=== PATIENT | female | born 1990 | race Caucasian/White ===

== ENCOUNTER 2021-10-25 22:20 | Emergency (ER) | payer BC ==
[2021-10-25] MEDS ORDERED: Iopamidol 370 76% 100 ML VIAL FS ONE (22:21)
[2021-10-25 23:32] LABS: Hemoglobin 13.2 g/dL (12.0-16.0); Mean Corpuscular HGB CONC 33.7 g/dL (32.0-36.0); Mean Corpuscular Hemoglobin 28.8 pg (27.0-31.0); Mean Corpuscular Volume 85.5 fL (78.0-98.0); Mean Platelet Volume 7.6 fL (7.4-10.4); Platelet Count 277 thou/uL (130-400); RBC Distribution Width 11.5 % (11.5-14.5); Red Blood Cell (RBC) Count 4.57 mill/uL (4.20-5.40)
[2021-10-25 23:49] LABS: Eosinophils 1 % (0-10); Lymphocytes 16 % (21-51); MDiff Complete? YES; Monocytes 8 % (0-10); Neutrophil 75 % (42-75); RBC Morphology Normal
[2021-10-25 23:54] LABS: Bilirubin Negative (Negative); Blood, Urine Trace (Negative); Clarity Clear (Clear); Glucose, Urine (Dipstick) Negative (Negative); Ketone, Urine Negative (Negative); Leukocyte Trace (Negative); Nitrite Negative (Negative); Protein, Urine (Dipstick) Negative (Neg-Trace); Specific Gravity, Urine 1.015 (1.005-1.030); pH, Urine 7.5 (5.0-9.0)
[2021-10-26 00:01] LABS: ALT (SGPT) 42 U/L (8-55); Albumin 3.9 g/dL (3.5-5.0); Alkaline Phosphatase 54 U/L (40-110); Anion Gap 13 mmol/L (10-20); BUN (Urea Nitrogen) 9 mg/dL (7.0-18.7); Bilirubin, Total 0.4 mg/dL (0.2-1.2); Calc. Creatinine Clearance 0 mL/min (70-130); Calcium 8.7 mg/dL (7.8-10.44); Carbon Dioxide 25 mmol/L (22-29); Chloride 104 mmol/L (98-107); Glucose 104 mg/dL (70-105); Lipase 16 U/L (8-78); Sodium 138 mmol/L (136-145)
[2021-10-26 00:04] LABS: Pregnancy Test - Urine (BHCG) Negative (Negative); Pregu Control Background? CLEAR/WHITE (CLR/WHITE); Pregu Control Bar Appear? YES (CONTROL BAR); Specific Gravity 1.015 (1.002-1.036)
[2021-10-26 00:08] LABS: Bacteria/HPF Rare-Few HPF (None Seen); RBC/HPF 0-3 HPF (0-3); Squamous Epithelial 0-3 HPF (0-3); WBC/HPF None Seen HPF (0-3)
[2021-10-26 00:36] LABS: AST (SGOT) 23 U/L (5-34); Potassium 4.4 mmol/L (3.5-5.1); Protein, Total 6.9 g/dL (6.0-8.3)
[2021-10-26] MEDS ORDERED: cefTRIAXone\\ROCEPHIN 1 GM VIAL ONE (01:34)
[2021-10-26] MEDS ORDERED: Sodium Chloride 0.9% 100 ML ONE (01:34)
[2021-10-26] MEDS ORDERED: Morphine 10 MG/ML VIAL ONE (01:34)
[2021-10-26 02:50] LABS: SARS-CoV-2 NAA Rapid Test Not Detected (NotDetected)
== END 2021-10-26 03:05 | disposition short-term general hospital (02) ==
LOC: BURERS 22:20
DX: K81.0 Acute cholecystitis (principal); Z20.822 Contact with and (suspected) exposure to COVID-19
CPT/HCPCS: 74177; 80053; 81003; 81015; 81025; 83690; 85025; 96365; 96375; J0696; J2270; J3490; Q9967; U0002